=== PATIENT | female | born 1950 | race African-American/Black ===

== ENCOUNTER 2022-02-27 21:44 | Emergency (ER) | payer OTHER ==
[~2022-02-27] VITALS: Ht 175.3 cm; Wt 102.1 kg
[2022-02-27] MEDS ORDERED: DIPHENOXYLATE HCL/ATROP SULF TABLET PO ONE (22:00)
[2022-02-27] MEDS ORDERED: DIPHENOXYLATE HCL/ATROP SULF TABLET ONE (22:02)
[2022-02-27 22:16] LABS: HEMATOCRIT 40.2 % (31.2-41.9); MEAN CORPUSCULAR VOLUME 91.1 fL (75.5-95.3); PLATELET COUNT (AUTO) 235 K/uL (179-408)
--- NOTE | 2022-02-27 22:18 | NUR ---
pt clive newsome from home for c/o sob states she is covid positive, pt states she has nausea and diarrhea.
[2022-02-27 22:27] LABS: CARBON DIOXIDE 28 mmol/L (21-32); CHLORIDE 97 mmol/L (98-107); CREATININE 1.7 mg/dL (0.6-1.3); GLUCOSE 106 mg/dL (74-106); POTASSIUM 3.5 mmol/L (3.5-5.1); UREA NITROGEN, BLOOD 20 mg/dL (7-18)
[2022-02-27] MEDS: MAGNESIUM SULFATE/D5W 100 ML IV SCH ×4 (23:00→23:39)
[2022-02-27] MEDS ORDERED: CHOLECALCIFEROL 1,000 UNIT TABLET PO SCH (23:00)
[2022-02-27] MEDS ORDERED: CHOLECALCIFEROL 1,000 UNIT TABLET ONE (23:05)
[2022-02-27] MEDS ORDERED: MAGNESIUM SULFATE/D5W 400 ML ONE (23:06)
[2022-02-27] MEDS ORDERED: LAGEVRIO PO (23:18)
--- NOTE | 2022-02-28 00:40 | NUR ---
patient is a/ox4, NAD noted. no SOB noted
[2022-02-28] MEDS ORDERED: OXYCODONE/APAP 5-325 MG TABLET PO ONE (00:45)
--- NOTE | 2022-02-28 00:45 | NUR ---
Dennis zhao in [facility] - 02/28/22 at 0058 by HUA pt left for VQ scan.
[2022-02-28] MEDS ORDERED: PROCHLORPERAZINE EDISYLATE 10 MG/2 ML VIAL ONE (00:52)
[2022-02-28] MEDS ORDERED: HYDROMORPHONE 1 MG/1 ML DISP.SYRIN ONE (00:52)
--- NOTE | 2022-02-28 00:58 | NUR ---
pt was taken for a vq scan.
[2022-02-28] MEDS ORDERED: PROCHLORPERAZINE EDISYLATE 10 MG/2 ML VIAL IV ONE (01:00)
[2022-02-28] MEDS ORDERED: HYDROMORPHONE 1 MG/1 ML DISP.SYRIN IV ONE (01:00)
[2022-02-28 01:25] LABS: BILIRUBIN,DIRECT 0.1 mg/dL (0.0-0.2); BILIRUBIN,TOTAL 0.6 mg/dL (0.2-1.0); TOTAL PROTEIN, SERUM 7.7 g/dL (6.4-8.2)
--- NOTE | 2022-02-28 02:01 | NUR ---
pt has returned from vq scan.
[2022-02-28] MEDS ORDERED: OXYC-128 PO (04:04)
[2022-02-28 04:52] VITALS: BP 115/70
--- NOTE | 2022-02-28 04:52 | NUR ---
Patient discharged to home in stable condition. Written and verbal after care instructions given. Patient verbalizes understanding of instructions. Stressed follow up or return to ER for worsening s/s.
== END 2022-02-28 04:53 | disposition home or self-care (01) ==
LOC: EDSEX 21:44 → ER 21:44
DX: U07.1 COVID-19 (principal); R06.00 Dyspnea, unspecified; R10.9 Unspecified abdominal pain; R19.7 Diarrhea, unspecified; E83.42 Hypomagnesemia; R00.0 Tachycardia, unspecified; Z86.711 Personal history of pulmonary embolism; Z79.01 Long term (current) use of anticoagulants; Z88.0 Allergy status to penicillin; Z88.2 Allergy status to sulfonamides
CPT/HCPCS: 99285; 96365; 96375; 87426; 80048; 83735; 85025; 85379; 85730; 84484; 36415 ×2; 93005; 78580; 76705; 80076; J3475; A9540; J0780; J1170; A4663